=== PATIENT | male | born 1945 | race Hispanic/Latino ===

== ENCOUNTER 2024-05-13 10:59 | Inpatient (IN) | payer MEDICARE, OTHER ==
[~2024-05-13] VITALS: Ht 182.9 cm; Wt 107.0 kg
[2024-05-13] VITALS (9 sets, daily range): BP systolic 144–162; BP diastolic 74–88; PULSE 60–88; RESP 16–19; TEMP 98.6–98.7; O2SAT 96–100
[~2024-05-13 10:59] MED LIST: BACLOFEN10 MG PO; COUMADIN3 MG PO; LOSARTAN POTASS25 MG PO
[2024-05-13 11:49] LABS: BASOPHILS % 0.2 % (0.0-1.0); EOSINOPHILS # (AUTO) 0.1 (0.0-0.4); EOSINOPHILS % 0.6 % (0.0-6.0); HEMATOCRIT 38.3 % (38.2-49.6); HEMOGLOBIN 12.4 g/dL (14.0-18.0); LYMPHOCYTES # (AUTO) 0.7 (1.0-3.2); MEAN CORPUSCULAR HEMOGLOBIN 31.8 pg (28-32); MEAN CORPUSCULAR HGB CONC 32.4 g/dL (31-35); MEAN CORPUSCULAR VOLUME 98.2 fL (81-99); MONOCYTES # (AUTO) 1.1 (0.2-0.8); MONOCYTES % 9.4 % (4.4-11.3); NEUTROPHILS % 83.2 % (38.7-80.0); PLATELET COUNT 112 x10e3/uL (140-360); RED CELL DISTRIBUTION WIDTH 14.5 % (11.7-14.4); WHITE BLOOD COUNT 12.03 x10e3/uL (4.8-10.8)
[2024-05-13] MEDS: Vancomycin IV 1 GM in SODIUM CHLORIDE 0.9% 250ML 250 ML IV ONE (11:51)
[2024-05-13] MEDS: SODIUM CHLORIDE 0.9% 1000ML 1,000 ML IV SCH (11:51)
[2024-05-13] MEDS ORDERED: ONDANSETRON HCL INJ 2MG/ML 2ML 2 MG/ML VIAL IV PRN (12:00)
[2024-05-13 12:49] LABS: ALBUMIN 3.2 g/dL (3.5-5.0); ALBUMIN/GLOBULIN RATIO 0.8 (0.8-2.0); ANION GAP 14.9 mmol/L (8-16); BILIRUBIN,TOTAL 0.8 mg/dL (0.2-1.2); CALCIUM 9.2 mg/dL (8.4-10.2); CREATININE, SERUM 1.35 mg/dL (0.72-1.25); POTASSIUM 3.9 mmol/L (3.5-5.1); TOTAL PROTEIN 7.1 g/dL (6.5-8.1)
[2024-05-13] MEDS: PIPERACILLIN/TAZOBACTAM 4.5 GM in SODIUM CHLORIDE 0.9% 100 ML IV ONE (14:13)
[2024-05-13] MEDS ORDERED: BACLOFEN10 MG PO (17:05)
[2024-05-13] MEDS ORDERED: ARICEPT10 MG PO (17:05)
[2024-05-13] MEDS ORDERED: LOSARTAN POTAS100 MG PO (17:05)
[2024-05-13] MEDS ORDERED: CIPRO500 MG PO (17:05)
[2024-05-13] MEDS ORDERED: CIPRO250 MG PO (17:05)
[2024-05-13] MEDS ORDERED: AVODART0.5 MG PO (17:05)
[2024-05-13] MEDS ORDERED: CLEOCIN HCL300 MG PO (17:05)
[2024-05-13] MEDS ORDERED: FOLIC ACID0.4 MG PO (17:05)
[2024-05-13] MEDS ORDERED: MEMANTINE HCL10 MG PO (17:05)
[2024-05-13] MEDS ORDERED: OXYBUTYNIN CHLOR5 MG PO (17:05)
[2024-05-13] MEDS ORDERED: GABAPENTIN100 MG PO (17:05)
[2024-05-13] MEDS ORDERED: ELIQUIS2.5 MG PO (17:13)
[2024-05-14] VITALS (8 sets, daily range): BP systolic 115–159; BP diastolic 71–82; PULSE 55–80; RESP 17–20; TEMP 98.3–98.6; O2SAT 95–100
[2024-05-14] MEDS: Morphine 4mg INJECTION 4 MG/ML INJ IV PRN (03:39)
[2024-05-14 06:15] LABS: BASOPHILS % 0.4 % (0.0-1.0); EOSINOPHILS # (AUTO) 0.2 (0.0-0.4); EOSINOPHILS % 1.9 % (0.0-6.0); HEMATOCRIT 34.8 % (38.2-49.6); LYMPHOCYTES # (AUTO) 0.9 (1.0-3.2); MEAN CORPUSCULAR HEMOGLOBIN 31.2 pg (28-32); MEAN CORPUSCULAR HGB CONC 31.6 g/dL (31-35); MEAN CORPUSCULAR VOLUME 98.6 fL (81-99); MONOCYTES # (AUTO) 1.1 (0.2-0.8); MONOCYTES % 11.8 % (4.4-11.3); NEUTROPHILS # (AUTO) 7.2 (2.1-6.9); NEUTROPHILS % 76.2 % (38.7-80.0); PLATELET COUNT 111 x10e3/uL (140-360); RED BLOOD COUNT 3.53 x10e6/uL (4.3-5.7); RED CELL DISTRIBUTION WIDTH 14.2 % (11.7-14.4); WHITE BLOOD COUNT 9.51 x10e3/uL (4.8-10.8)
[2024-05-14 06:41] LABS: ANION GAP 11.8 mmol/L (8-16); CREATININE, SERUM 1.17 mg/dL (0.72-1.25); POTASSIUM 3.8 mmol/L (3.5-5.1)
[2024-05-14] MEDS: GABAPENTIN 100 MG CAP PO SCH (09:43)
[2024-05-14] MEDS: OXYBUTYNIN CHLORIDE 5 MG TAB PO SCH (09:43)
[2024-05-14] MEDS: BACLOFEN 10 MG TAB PO SCH (09:43)
[2024-05-14] MEDS: LOSARTAN POTASSIUM 100 MG TAB PO SCH (09:43)
[2024-05-14] MEDS: MEMANTINE 10 MG TAB PO SCH (09:44)
[2024-05-14] MEDS: DUTASTERIDE 0.5 MG CAP PO SCH (09:44)
[2024-05-14] MEDS ORDERED: ONDANSETRON HCL 4 MG ORAL DISINTEGRATING TAB PO PRN (10:45)
[2024-05-14] MEDS: APIXABAN 2.5 MG TABLET PO SCH (11:19)
[2024-05-14] MEDS: HYDROCODONE/APAP 7.5MG-325MG 1 EA TAB PO PRN (13:24)
[2024-05-14] MEDS ORDERED: NALOXONE HCL INJ 0.4 MG/ML AMP IV PRN (17:45)
[2024-05-14] MEDS: NALOXONE HCL INJ 0.4 MG/ML AMP IV PRN (18:17)
[2024-05-14] MEDS: DONEPEZIL HCL 5 MG TAB PO SCH (21:21)
[2024-05-15] VITALS (7 sets, daily range): BP systolic 141–178; BP diastolic 63–81; PULSE 56–77; RESP 17–20; TEMP 97.6–99.2; O2SAT 96–100
[2024-05-15] MEDS: HYDRALAZINE HCL 20 MG/ML VIAL IV PRN (06:37)
[2024-05-15 08:05] LABS: BASOPHILS # (AUTO) 0.1 (0.0-0.1); BASOPHILS % 0.6 % (0.0-1.0); EOSINOPHILS # (AUTO) 0.2 (0.0-0.4); EOSINOPHILS % 2.6 % (0.0-6.0); HEMATOCRIT 37.6 % (38.2-49.6); HEMOGLOBIN 12.1 g/dL (14.0-18.0); LYMPHOCYTES % 11.6 % (18.0-39.1); MEAN CORPUSCULAR HEMOGLOBIN 31.8 pg (28-32); MEAN CORPUSCULAR HGB CONC 32.2 g/dL (31-35); MEAN CORPUSCULAR VOLUME 98.7 fL (81-99); MONOCYTES % 11.3 % (4.4-11.3); NEUTROPHILS # (AUTO) 6.2 (2.1-6.9); PLATELET COUNT 116 x10e3/uL (140-360); RED BLOOD COUNT 3.81 x10e6/uL (4.3-5.7); RED CELL DISTRIBUTION WIDTH 14.4 % (11.7-14.4)
[2024-05-15 08:29] LABS: CALCIUM 9.2 mg/dL (8.4-10.2); CREATININE, SERUM 1.06 mg/dL (0.72-1.25)
[2024-05-15] MEDS ORDERED: IOPAMIDOL 370 MG/ML 100 ML INFUS..BTL INJ ONE (12:49)
[2024-05-15] MEDS: DAPTOMYCIN 500mg 10ML 1,000 MG in SODIUM CHLORIDE 0.9% 100 ML IV SCH (16:37)
[2024-05-16] VITALS: BP 136/74; PULSE 63; RESP 19; TEMP 98.4; O2SAT 98
[2024-05-16 04:00] VITALS: BP 150/69; PULSE 60; RESP 18; TEMP 98.6; O2SAT 96
[2024-05-16] MEDS: ACETAMINOPHEN 325 MG TAB PO PRN (05:24)
[2024-05-16 08:09] VITALS: BP 144/73; PULSE 63; RESP 17; TEMP 97.9; O2SAT 98
[2024-05-16 11:30] VITALS: BP 138/63; PULSE 61; RESP 17; TEMP 98.9; O2SAT 100
[2024-05-16 16:03] VITALS: BP 145/70; PULSE 78; RESP 17; TEMP 97.9; O2SAT 98
[2024-05-16] MEDS ORDERED: TRAMADOL/APAP 37.5MG-325MG TAB PO PRN ×2 (18:00)
[2024-05-16] MEDS: TRAMADOL HCL 50 MG TAB PO ONE (19:30)
[2024-05-16 20:00] VITALS: BP 143/74; PULSE 70; RESP 20; TEMP 99.2; O2SAT 98
[2024-05-17] VITALS (9 sets, daily range): BP systolic 129–160; BP diastolic 63–74; PULSE 54–70; RESP 16–20; TEMP 97.6–98.8; O2SAT 97–100
[2024-05-18] VITALS: BP 139/74; PULSE 66; RESP 16; TEMP 98.5; O2SAT 99
[2024-05-18 07:32] LABS: BASOPHILS % 0.4 % (0.0-1.0); EOSINOPHILS # (AUTO) 0.2 (0.0-0.4); EOSINOPHILS % 2.1 % (0.0-6.0); HEMATOCRIT 33.9 % (38.2-49.6); HEMOGLOBIN 11.1 g/dL (14.0-18.0); LYMPHOCYTES # (AUTO) 1.2 (1.0-3.2); LYMPHOCYTES % 12.9 % (18.0-39.1); MEAN CORPUSCULAR HEMOGLOBIN 31.6 pg (28-32); MEAN CORPUSCULAR HGB CONC 32.7 g/dL (31-35); MEAN CORPUSCULAR VOLUME 96.6 fL (81-99); MONOCYTES # (AUTO) 0.7 (0.2-0.8); MONOCYTES % 7.7 % (4.4-11.3); PLATELET COUNT 201 x10e3/uL (140-360); RED BLOOD COUNT 3.51 x10e6/uL (4.3-5.7); RED CELL DISTRIBUTION WIDTH 13.7 % (11.7-14.4); WHITE BLOOD COUNT 9.22 x10e3/uL (4.8-10.8)
[2024-05-18 07:57] LABS: ANION GAP 11.6 mmol/L (8-16); CALCIUM 8.7 mg/dL (8.4-10.2); CREATININE, SERUM 0.97 mg/dL (0.72-1.25); POTASSIUM 3.6 mmol/L (3.5-5.1)
[2024-05-18 08:00] VITALS: BP 134/63; PULSE 57; RESP 18; TEMP 98.4; O2SAT 98
[2024-05-18 11:29] VITALS: BP 134/63; PULSE 57; RESP 18; TEMP 98.4; O2SAT 98
[2024-05-18 12:00] VITALS: BP 141/60; PULSE 61; RESP 17; TEMP 98; O2SAT 96
[2024-05-18] MEDS ORDERED: FENTANYL CITRATE/PF 100MCG/2 ML INJ ONE (12:00)
[2024-05-18] MEDS ORDERED: MIDAZOLAM HCL 2 MG/2 ML VIAL ONE (12:00)
[2024-05-18] MEDS ORDERED: GLYCOPYRROLATE INJ 0.2 MG/ML VIAL ONE (12:25)
[2024-05-18] MEDS ORDERED: SEVOFLURANE INHAL SOLN 250 ML PEN BTL ONE (12:25)
[2024-05-18] MEDS ORDERED: PHENYLEPHRINE HCL 1% 10 MG/ML VIAL ONE (12:25)
[2024-05-18] MEDS ORDERED: PROPOFOL IV EMULSION 10 MG/ML 20 ML VIAL ONE (12:25)
[2024-05-18] MEDS ORDERED: ONDANSETRON HCL INJ 2MG/ML 2ML 2 MG/ML VIAL ONE (12:25)
[2024-05-18] MEDS ORDERED: LIDOCAINE HCL 2% LOCAL INJ 5 ML SDV VIAL INJ ONE (12:25)
[2024-05-18] MEDS ORDERED: EPINEPHRINE HCL 1:1000 1ML 1 MG/ML AMP ONE (12:55)
[2024-05-18] MEDS ORDERED: ROPIVACAINE 0.5% 5 MG/ML 30 ML SDV ONE (12:55)
[2024-05-18] MEDS ORDERED: LIDOCAINE HCL 2% LOCAL 20 ML VIAL ONE (12:55)
[2024-05-18 16:00] VITALS: BP 132/65; PULSE 63; RESP 18; TEMP 97.9; O2SAT 100
[2024-05-18 20:00] VITALS: BP 132/65; PULSE 63; RESP 18; TEMP 97.9; O2SAT 100
[2024-05-19] VITALS: BP 146/58; PULSE 63; RESP 22; TEMP 100.1; O2SAT 98
[2024-05-19] MEDS: TRAMADOL HCL 50 MG TAB PO PRN (03:03)
[2024-05-19 08:17] VITALS: BP 144/68; PULSE 65; RESP 18; TEMP 98.5; O2SAT 97
[2024-05-19 08:58] VITALS: BP 144/68; PULSE 65; RESP 18; TEMP 98.5; O2SAT 97
[2024-05-19 11:20] VITALS: BP 151/80; PULSE 69; RESP 18; TEMP 98.3; O2SAT 98
[2024-05-19] MEDS ORDERED: SODIUM CHLORIDE 0.9% 250ML 250 ML ONE (15:02)
[2024-05-19 20:00] VITALS: BP 151/70; PULSE 60; RESP 18; TEMP 98.4; O2SAT 98
[2024-05-20] VITALS (8 sets, daily range): BP systolic 114–147; BP diastolic 59–71; PULSE 58–74; RESP 17–20; TEMP 97.8–98.6; O2SAT 96–99
[2024-05-20] MEDS: Morphine 2mg Syringe 2 MG/ML SYR IV PRN (14:12)
[2024-05-21] VITALS (8 sets, daily range): BP systolic 123–143; BP diastolic 57–71; PULSE 60–69; RESP 12–20; TEMP 97.4–98.6; O2SAT 96–100
[2024-05-21 17:19] LABS: BASOPHILS % 0.4 % (0.0-1.0); CALCIUM 8.5 mg/dL (8.4-10.2); CREATININE, SERUM 0.98 mg/dL (0.72-1.25); EOSINOPHILS # (AUTO) 0.1 (0.0-0.4); EOSINOPHILS % 1.6 % (0.0-6.0); HEMOGLOBIN 10.9 g/dL (14.0-18.0); LYMPHOCYTES # (AUTO) 0.9 (1.0-3.2); LYMPHOCYTES % 10.5 % (18.0-39.1); MEAN CORPUSCULAR HEMOGLOBIN 31.4 pg (28-32); MEAN CORPUSCULAR HGB CONC 32.1 g/dL (31-35); MONOCYTES # (AUTO) 0.6 (0.2-0.8); MONOCYTES % 6.9 % (4.4-11.3); NEUTROPHILS # (AUTO) 6.8 (2.1-6.9); NEUTROPHILS % 80.2 % (38.7-80.0); PLATELET COUNT 255 x10e3/uL (140-360); RED BLOOD COUNT 3.47 x10e6/uL (4.3-5.7); RED CELL DISTRIBUTION WIDTH 13.3 % (11.7-14.4); WHITE BLOOD COUNT 8.49 x10e3/uL (4.8-10.8)
[2024-05-22 00:50] VITALS: BP 126/63; PULSE 60; RESP 17; TEMP 98.3; O2SAT 98
[2024-05-22 04:53] VITALS: BP 151/77; PULSE 60; RESP 17; TEMP 98; O2SAT 99
[2024-05-22 08:21] VITALS: BP 150/72; PULSE 67; RESP 16; TEMP 97.8; O2SAT 100
[2024-05-22 08:28] VITALS: BP 150/72; PULSE 67; RESP 16; TEMP 97.8; O2SAT 100
[2024-05-22 11:49] VITALS: BP 134/66; PULSE 77; RESP 20; TEMP 98.3; O2SAT 100
[2024-05-22 15:56] VITALS: BP 142/74; PULSE 72; RESP 14; TEMP 98.2; O2SAT 100
[2024-05-22] MEDS ORDERED: DAPTOMYCIN1000 MG/10 IV (16:39)
[2024-05-22] MEDS ORDERED: CEFEPIME 11 GM/50 ML IV (16:40)
[2024-05-22] MEDS: ALTEPLASE RECOMBINANT 2 MG/2 ML VIAL IV ONE (18:26)
== END 2024-05-22 20:31 | disposition home health service (06) | DRG 602 ==
LOC: ER 11:04 → ERHOLD 11:55 → MED/SURG2 14:42 → OBSVTOIN 05-14 10:05
PROVIDERS: ADMIT Internal Medicine; ATTEND Internal Medicine
PROC: 0J9Q0ZZ Drainage of Right Foot Subcutaneous Tissue and Fascia, Open Approach (ICD-10-PCS; 2024-05-19)
PROC: 0J9N0ZZ Drainage of Right Lower Leg Subcutaneous Tissue and Fascia, Open Approach (ICD-10-PCS; 2024-05-19)
PROC: 02HV33Z Insertion of Infusion Device into Superior Vena Cava, Percutaneous Approach (ICD-10-PCS; principal; 2024-05-20)
DX: L02.415 Cutaneous abscess of right lower limb (principal); G93.41 Metabolic encephalopathy; I48.21 Permanent atrial fibrillation; L97.319 Non-pressure chronic ulcer of right ankle with unspecified severity; L02.611 Cutaneous abscess of right foot; L03.115 Cellulitis of right lower limb; E03.9 Hypothyroidism, unspecified; I10 Essential (primary) hypertension; F03.B0 Unspecified dementia, moderate, without behavioral disturbance, psychotic disturbance, mood disturbance, and anxiety; R00.9 Unspecified abnormalities of heart beat; N40.0 Benign prostatic hyperplasia without lower urinary tract symptoms; I73.9 Peripheral vascular disease, unspecified; I87.8 Other specified disorders of veins; T40.605A Adverse effect of unspecified narcotics, initial encounter; G62.9 Polyneuropathy, unspecified; Z11.52 Encounter for screening for COVID-19; Z79.01 Long term (current) use of anticoagulants; Z95.0 Presence of cardiac pacemaker; Z88.0 Allergy status to penicillin; Z88.2 Allergy status to sulfonamides; Z88.5 Allergy status to narcotic agent
CPT/HCPCS: 36415; 36569; 71045; 80048; 80053; 83036; 83605; 85025; 87040; 87071; 87075; 87205; 93925; 94799; 97605; 99252; 99284; G0378; J0171; J0360; J2001; J2250; J2270; J2310; J2371; J2405; J2543; J2795; J2997; J7030; J7050; Q9967; U0002

== ENCOUNTER 2024-05-25 13:04 | Emergency (ER) | payer MEDICARE ==
[~2024-05-25] VITALS: Ht 182.9 cm; Wt 107.0 kg
[~2024-05-25 13:04] MED LIST changes: +ARICEPT10 MG PO; +AVODART0.5 MG PO; +CEFEPIME 11 GM/50 ML IV; +CIPRO250 MG PO; +CIPRO500 MG PO; +CLEOCIN HCL300 MG PO; +DAPTOMYCIN1000 MG/10 IV; +ELIQUIS2.5 MG PO; +FOLIC ACID0.4 MG PO; +GABAPENTIN100 MG PO; +LOSARTAN POTAS100 MG PO; +MEMANTINE HCL10 MG PO; +OXYBUTYNIN CHLOR5 MG PO
[2024-05-25 13:13] VITALS: RESP 16; TEMP 98.9
[2024-05-25 17:49] VITALS: PULSE 63
[2024-05-25 17:55] VITALS: BP 157/80; PULSE 63; RESP 16; O2SAT 100
== END 2024-05-25 17:55 | disposition home or self-care (01) ==
LOC: ER 14:19
DX: Z45.2 Encounter for adjustment and management of vascular access device (principal); I10 Essential (primary) hypertension; F03.90 Unspecified dementia, unspecified severity, without behavioral disturbance, psychotic disturbance, mood disturbance, and anxiety
CPT/HCPCS: 36569; 36584; 71045; 99283

== ENCOUNTER 2024-06-04 08:42 | Outpatient (RCR) | payer MEDICARE ==
[~2024-06-04 08:42] MED LIST changes: +LIDOCAINE VISC 2% SOLN 15 ML UDC ONE; +MINERAL OIL/PETROLAT/GLYCERI 6OZ BTL ONE
== END 2024-06-05 ==
LOC: WCC 08:42
PROVIDERS: ATTEND Internal Medicine Infectious Disease
DX: L89.893 Pressure ulcer of other site, stage 3 (principal); L03.115 Cellulitis of right lower limb

== ENCOUNTER 2024-07-02 09:40 | Outpatient (RCR) | payer MEDICARE ==
[~2024-07-02 09:40] MED LIST changes: -LIDOCAINE VISC 2% SOLN 15 ML UDC ONE
[2024-07-02] MEDS ORDERED: TRYPSIN/BALSAM PERU/CASTOR OIL ONE (13:41)
== END 2024-07-05 ==
LOC: WCC 09:40
PROVIDERS: ATTEND Internal Medicine Infectious Disease
DX: L89.893 Pressure ulcer of other site, stage 3 (principal)

== ENCOUNTER 2024-07-30 10:02 | Outpatient (RCR) | payer MEDICARE ==
[~2024-07-30 10:02] MED LIST changes: -MINERAL OIL/PETROLAT/GLYCERI 6OZ BTL ONE; +TRYPSIN/BALSAM PERU/CASTOR OIL ONE
== END 2024-08-05 ==
LOC: WCC 10:02
PROVIDERS: ATTEND Plastic Surgery
DX: L89.893 Pressure ulcer of other site, stage 3 (principal); L89.612 Pressure ulcer of right heel, stage 2

== ENCOUNTER 2025-01-02 22:22 | Emergency (ER) | payer MEDICARE ==
[~2025-01-02] VITALS: Ht 182.9 cm; Wt 102.5 kg
[~2025-01-02 22:22] MED LIST changes: -TRYPSIN/BALSAM PERU/CASTOR OIL ONE
[2025-01-02] MEDS ORDERED: ACETAMINOPHEN 325 MG TAB ONE (22:50)
[2025-01-02] MEDS: ACETAMINOPHEN 325 MG TAB PO ONE (23:07)
[2025-01-02 23:09] LABS: BASOPHILS % 0.3 % (0.0-1.0); EOSINOPHILS # (AUTO) 0.1 (0.0-0.4); EOSINOPHILS % 0.9 % (0.0-6.0); HEMATOCRIT 39.1 % (38.2-49.6); HEMOGLOBIN 12.9 g/dL (14.0-18.0); LYMPHOCYTES # (AUTO) 0.5 (1.0-3.2); LYMPHOCYTES % 6.4 % (18.0-39.1); MEAN CORPUSCULAR HEMOGLOBIN 30.5 pg (28-32); MEAN CORPUSCULAR VOLUME 92.4 fL (81-99); MONOCYTES # (AUTO) 0.8 (0.2-0.8); MONOCYTES % 10.3 % (4.4-11.3); NEUTROPHILS # (AUTO) 6.4 (2.1-6.9); NEUTROPHILS % 81.8 % (38.7-80.0); PLATELET COUNT 138 x10e3/uL (140-360); RED BLOOD COUNT 4.23 x10e6/uL (4.3-5.7); RED CELL DISTRIBUTION WIDTH 13.2 % (11.7-14.4); WHITE BLOOD COUNT 7.84 x10e3/uL (4.8-10.8)
[2025-01-02 23:16] LABS: INR 1.26; PROTHROMBIN TIME 16.5 seconds (11.9-14.5)
[2025-01-02 23:17] LABS: PARTIAL THROMBOPLASTIN TIME 40.9 seconds (23.8-35.5)
[2025-01-02 23:26] LABS: ALBUMIN 4.1 g/dL (3.5-5.0); ALBUMIN/GLOBULIN RATIO 1.1 (0.8-2.0); ANION GAP 13.8 mmol/L (8-16); BILIRUBIN,TOTAL 0.8 mg/dL (0.2-1.2); CALCIUM 8.9 mg/dL (8.4-10.2); CORONAVIRUS COVID-19 AG NEGATIVE (NEGATIVE); CREATININE, SERUM 1.14 mg/dL (0.72-1.25); INFLUENZA A AG POSITIVE (NEGATIVE); INFLUENZA B AG NEGATIVE (NEGATIVE); POTASSIUM 3.8 mmol/L (3.5-5.1); TOTAL PROTEIN 7.7 g/dL (6.5-8.1)
[2025-01-03 00:22] VITALS: TEMP 99.6
[2025-01-03 01:39] LABS: BILIRUBIN,URINE NEGATIVE (NEGATIVE); CLARITY,URINE CLEAR (CLEAR); COLOR,URINE YELLOW (YELLOW); GLUCOSE, URINE NEGATIVE (NEGATIVE); KETONES,URINE NEGATIVE (NEGATIVE); LEUKOCYTE ESTERASE ,URINE NEGATIVE (NEGATIVE); NITRITE,URINE NEGATIVE (NEGATIVE); PH,URINE 5.5 (5 - 7); PROTEIN,URINE DIPSTICK 1+ (NEGATIVE); URINE UROBILINOGEN 1 mg/dL (0.2 - 1)
[2025-01-03 02:02] LABS: BACTERIA,URINE MODERATE /HPF; EPITHELIAL CELLS,URINE FEW /LPF; MUCUS,URINE MANY; RBC,URINE 21-50 /HPF (0-5)
[2025-01-03] MEDS ORDERED: CEFDINIR300 MG PO (02:26)
[2025-01-03] MEDS ORDERED: ONDANSETRON ODT4 MG SL (02:26)
[2025-01-03 02:51] VITALS: PULSE 72; RESP 20; O2SAT 98
== END 2025-01-03 02:51 | disposition home or self-care (01) ==
LOC: ER 22:51
DX: R50.9 Fever, unspecified (principal); J10.1 Influenza due to other identified influenza virus with other respiratory manifestations; R05.9 Cough, unspecified; N39.0 Urinary tract infection, site not specified; R53.83 Other fatigue; F03.90 Unspecified dementia, unspecified severity, without behavioral disturbance, psychotic disturbance, mood disturbance, and anxiety; I10 Essential (primary) hypertension; I48.91 Unspecified atrial fibrillation; R94.31 Abnormal electrocardiogram [ECG] [EKG]
CPT/HCPCS: 36415; 71045; 80053; 81001; 83605; 83880; 84484; 85025; 85610; 85730; 87040; 87086; 87428; 93005; 99284; J0696

== ENCOUNTER → 2025-03-02 | Outpatient (REF) | payer MEDICARE ==
[~2025-03-02] MED LIST changes: +CEFDINIR300 MG PO; +MAGNESIUM OXID400 MG PO; +ONDANSETRON ODT4 MG SL
[2025-03-02 09:22] LABS: BASOPHILS % 0.5 % (0.0-1.0); EOSINOPHILS # (AUTO) 0.3 (0.0-0.4); EOSINOPHILS % 3.9 % (0.0-6.0); HEMATOCRIT 41.7 % (38.2-49.6); LYMPHOCYTES # (AUTO) 1.6 (1.0-3.2); LYMPHOCYTES % 25.8 % (18.0-39.1); MEAN CORPUSCULAR HEMOGLOBIN 30.4 pg (28-32); MEAN CORPUSCULAR HGB CONC 33.6 g/dL (31-35); MEAN CORPUSCULAR VOLUME 90.7 fL (81-99); MONOCYTES # (AUTO) 0.6 (0.2-0.8); MONOCYTES % 9.3 % (4.4-11.3); NEUTROPHILS # (AUTO) 3.8 (2.1-6.9); NEUTROPHILS % 60.3 % (38.7-80.0); PLATELET COUNT 180 x10e3/uL (140-360); RED CELL DISTRIBUTION WIDTH 14.2 % (11.7-14.4); WHITE BLOOD COUNT 6.33 x10e3/uL (4.8-10.8)
== END ==
LOC: RAD 15:00 → EDSTATUS 03-04 08:30
PROVIDERS: ATTEND Podiatrist Foot Surgery
DX: Z01.818 Encounter for other preprocedural examination (principal); L89.894 Pressure ulcer of other site, stage 4; M79.671 Pain in right foot
CPT/HCPCS: 36415; 71046; 85025; 93005